=== PATIENT | female | born 1960 | race Caucasian/White ===

== ENCOUNTER → 2020-11-09 | Outpatient (CLI) | payer BC | LOC: SLEEP 21:30 | DX: G47.33 Obstructive sleep apnea (adult) (pediatric) (principal); K21.9 Gastro-esophageal reflux disease without esophagitis; R13.10 Dysphagia, unspecified; R55 Syncope and collapse; R42 Dizziness and giddiness; R05 Cough; R06.02 Shortness of breath; M54.2 Cervicalgia; J32.4 Chronic pansinusitis; I35.1 Nonrheumatic aortic (valve) insufficiency; M47.819 Spondylosis without myelopathy or radiculopathy, site unspecified; Z88.0 Allergy status to penicillin; Z87.891 Personal history of nicotine dependence; G47.00 Insomnia, unspecified | CPT/HCPCS: 95811 ==